=== PATIENT | female | born 1945 | race Caucasian/White ===

== ENCOUNTER 2018-10-08 10:33 | Inpatient (IN) | payer MEDICARE, OTHER ==
[2018-10-08 11:08] LABS: #Basophils 0.1 thou/uL (0.0-0.2); #Eosinphils 0.1 thou/uL (0.0-0.7); #Lymphocytes 2.3 thou/uL (1.20-3.40); #Neutrophils 9.8 thou/uL (1.40-6.50); %Basophils 0.6 % (0.0-1.0); %Eosinophils 0.8 % (0.0-10.0); %Lymphocytes 17.3 % (21.0-51.0); %Monocytes 7.4 % (0.0-10.0); Hemoglobin 13.1 g/dL (12.0-16.0); Mean Corpuscular Hemoglobin 30.3 pg (27.0-31.0); Mean Corpuscular Volume 94.6 fL (78.0-98.0); Mean Platelet Volume 6.8 fL (7.4-10.4); Platelet Count 348 thou/uL (130-400); RBC Distribution Width 13.1 % (11.5-14.5); Red Blood Cell (RBC) Count 4.33 mill/uL (4.20-5.40); White Blood Cell (WBC) Count 13.2 thou/uL (4.8-10.8)
[2018-10-08 11:36] LABS: ALT (SGPT) 22 U/L (8-55); AST (SGOT) 27 U/L (5-34); Albumin 3.3 g/dL (3.4-4.8); Alkaline Phosphatase 87 U/L (40-150); Anion Gap 15 mmol/L (10-20); BUN (Urea Nitrogen) 16 mg/dL (9.8-20.1); Bilirubin, Total 0.7 mg/dL (0.2-1.2); CK (CPK) 780 U/L (29-168); Calc. Creatinine Clearance 0 mL/min (70-130); Carbon Dioxide 24 mmol/L (23-31); Chloride 103 mmol/L (98-107); Estimated GFR-MDRD 75; Globulin 3.7 g/dL (2.4-3.5); Glucose 151 mg/dL (83-110); Potassium 3.7 mmol/L (3.5-5.1); Sodium 138 mmol/L (136-145)
[2018-10-08 11:39] LABS: Troponin I 0.084 ng/mL (< 0.028)
[2018-10-08 11:56] LABS: CKMB 25.3 ng/mL (0-6.6)
--- NOTE | 2018-10-08 12:35 | CT ---
CTA THORAX WITH IV CONTRAST AND 3D REFORMATTED IMAGING: INDICATIONS: Dyspnea. FINDINGS: There is extensive pulmonary thrombus seen within both distal main pulmonary arteries but more so on the right. There is near complete occlusion of the right interlobar artery with multiple filling def ects extending into the segmental branches of the right lower lobe, right middle lobe, and right uppe r lobe. There are substantial partially occlusive filling defects within the left lower lobe, lingul a, and left upper lobe. There are small bilateral pleural effusions, left greater than right, with b ibasilar atelectasis. There is some flattening of the intraventricular septum, which may be indicati ve of early right heart strain. No reflux of contrast is seen within the hepatic veins. There is an aortic valvular prosthesis. There is scattered vascular calcification of the coronary arteries and thoracic aorta. The visualized upper abdomen reveals no acute abnormality. There is scattered degen erative change. IMPRESSION: 1. Extensive pulmonary embolus, as above, with findings of early right heart strain. Findings verdugo d to Dr. Parikh at 12:20 p.m. on 10/08/2018. 2. Small bilateral pleural effusions and bibasilar atelectasis. CODE CR POS: [facility]
[2018-10-08] MEDS ORDERED: ISOVUE-370 76%-LOCM 1 ML ONE (13:59)
[2018-10-08] MEDS ORDERED: Loperamide HCl 2 MG CAP PO PRN (14:24)
[2018-10-08] MEDS ORDERED: HYDROcodone/Acetaminophen 5/325 mg Tablet PO PRN (14:24)
[2018-10-08] MEDS ORDERED: Acetaminophen 325 MG TAB PO PRN (14:24)
[2018-10-08] MEDS ORDERED: Cepastat Lozenges 1 LOZ PO PRN (14:24)
[2018-10-08] MEDS ORDERED: Ondansetron ODT 4 MG TAB PO PRN (14:24)
[2018-10-08] MEDS ORDERED: Diabetic Tussin 200 MG/10 ML UDCUP PO PRN (14:24)
[2018-10-08] MEDS ORDERED: Eucerin (Mineral Oil/Petrolatum,White) 30 gm Jar TOP PRN (14:24)
[2018-10-08] MEDS ORDERED: Labetalol HCl 100 MG/20 ML VIAL SLOW IVP PRN (14:24)
[2018-10-08] MEDS ORDERED: Bisacodyl 5 MG TAB PO PRN (14:24)
[2018-10-08] MEDS ORDERED: Sodium Chloride 0.65% Nasal 44 ML BOT EA NARE PRN (14:24)
[2018-10-08] MEDS ORDERED: Ondansetron PF 4 MG/2 ML Vial IVP PRN (14:24)
[2018-10-08] MEDS ORDERED: Calcium Carbonate 500 MG ChewTAB PO PRN (14:24)
[2018-10-08] MEDS ORDERED: Artificial Tears 18 DROP/0.9 ML EA EYE PRN (14:24)
[2018-10-08] MEDS ORDERED: Loratadine 10 MG TAB PO PRN (14:24)
[2018-10-08] MEDS ORDERED: Bisacodyl 10 MG SUPP PR PRN (14:24)
[2018-10-08] MEDS ORDERED: Senokot S 8.6-50 MG TAB PO PRN (14:24)
[2018-10-08 15:21] VITALS: BMI 32.8
[2018-10-08 15:22] LABS: Troponin I 0.096 ng/mL (< 0.028)
--- NOTE | 2018-10-08 15:29 | PDOC.PULCN ---
<Zev Stapleton - Last Filed: 10/08/18 18:58> Pulmonology Consult: HPI - Date of Consult Date: 10/08/18 Time: 15:20 - Consult Details Reason for Consult: bilateral pulmonary embolism s/p TPA Requesting Physician: Aleyda Avendaño - History of Present Illness HPI: CHAVA PELAEZ is a 73 year-old F with PMH of Dementia and Hypothyroidism. History obtained from ER documentation as patient is poor historian due to dementia and no family is present. Apparently, patient was short of breath at home and oxygen saturation was checked by family member and was 83%. When EMS arrived, they put patient on NC and her O2 sat was 83%. She was brought to ED. CTA of chest was performed and showed bilateral distal pulmonary artery embolism , greater on the right. After discussion with ERMRavin, Dr. Chatterjee, and family, decision was made to start TPA and patient was transitioned to the CCU. Sats were 93-94% on facemask in the ED. Pulmonology Consult: ROS - Review of Systems ROS unobtainable: due to mental status (ROS unreliable due to dementia but patient did deny following) Constitutional: negative: fever, chills, sweats, weakness Cardiovascular: negative: chest pain, palpitations, light headedness Respiratory: negative: congestion, cough, chest tightness, short of breath Pulmonology Consult: PMH Source: other (ED documentation as patient is unreliable historian) Past Medical History: 1) Dementia 2) Hypothyroidism - Social History Smoking Status: Unknown if ever smoked Alcohol Use: none, other (unknown) Drug Use History: other (unknown) Living Situation: with family/parents Pulmonology Consult: Meds - Medications MAR Reviewed: Yes Medications: Current Medications Acetaminophen (Tylenol) 650 mg PO Q4H PRN PRN Reason: Headache/Fever/Mild Pain (1-3) Hydrocodone Bitart/Acetaminophen ([place] 5/325) 1 tab PO Q4H PRN PRN Reason: Moderate Pain (4-6) Artificial Tears (Tears Naturale) 2 drop EA EYE PRN PRN PRN Reason: Dry Eyes Bisacodyl (Dulcolax) 10 mg PO DAILYPRN PRN PRN Reason: Constipation Bisacodyl (Dulcolax) 10 mg [place] DAILYPRN PRN PRN Reason: Constipation Calcium Carbonate (Tums) 1,000 mg PO Q4H PRN PRN Reason: Heartburn or Indigestion Famotidine (Pepcid) 20 mg PO BID HASMUKH Guaifenesin (Robitussin Sf) 200 mg PO Q4H PRN PRN Reason: Cough Labetalol HCl (Normodyne) 10 mg SLOW IVP Q4H PRN PRN Reason: SBP Greater Than 170 Loperamide HCl (Imodium) 2 mg PO PRN PRN PRN Reason: Diarrhea/Loose Stools Loratadine (Claritin) 10 mg PO DAILYPRN PRN PRN Reason: Sinus Symptoms Mineral Oil/White Petrolatum (Eucerin Cream) 0 gm TOP BIDPRN PRN PRN Reason: Dry Skin Ondansetron HCl (Zofran Odt) 4 mg PO Q6H PRN PRN Reason: Nausea/Vomiting Ondansetron HCl (Zofran) 4 mg IVP Q6H PRN PRN Reason: Nausea/Vomiting Senna/Docusate Sodium (Senokot S) 2 tab PO BID PRN PRN Reason: Constipation Sodium Chloride (Petroleum Nasal [place] 0.65%) 0 ml EA NARE QIDPRN PRN PRN Reason: Nasal Congestion Throat Lozenges (Cepastat Lozenges) 1 steve PO Q2H PRN PRN Reason: Sore Throat - Allergies Allergies/Adverse Reactions: Allergies Allergy/AdvReac Type Severity Reaction Status Date / Time Penicillins Allergy Verified 10/08/18 14:39 Pulmonology Consult: PE - Physical Exam Constitutional: NAD HEENT: moist MMs, sclera anicteric Neck: supple, full ROM Cardiovascular: no significant murmur, no rub Deviation from normal: tachycardic Respiratory: clear to auscultation bilaterally. negative: decreased breath sounds, rales, respiratory distress, wheezes Gastrointestinal: soft, non-tender Musculoskeletal: no edema, pulses present Neurological: non-focal, moves all 4 limbs Deviation from normal: A&O x 1 Skin: no rash, cap refill <2 seconds Pulmonology Consult: Results - Labs Result Diagrams: 10/08/18 10:58 10/08/18 10:58 - EKG Data Rate: tachycardia (Sinus Tachycardia with inverted T waves and Q waves in inferior leads) Pulmonology Consult: A/P - Problem (1) Bilateral pulmonary embolism Code(s): I26.99 - OTHER PULMONARY EMBOLISM WITHOUT ACUTE COR PULMONALE Status : Acute (2) Hypothyroidism Code(s): E03.9 - HYPOTHYROIDISM, UNSPECIFIED Status: Chronic (3) Dementia Code(s): F03.90 - UNSPECIFIED DEMENTIA WITHOUT BEHAVIORAL DISTURBANCE Status: Chronic - Time Time: 50% of the time was spent in coordination of care (as documented) at patient's floor/unit and/or counseling patient. Time with Patient: greater than 50 minutes - Plan Plan: Submassive pulmonary embolism s/p TPA administration. CTA of chest showed bilateral distal pulmonary artery embolism, great in right with evidence of right heart strain. Received TPA in ER. TPA completed at 1450. Patient is doing well from a respiratory standpoint. Currently, oxygen saturation is 94% on RA. Will initiate anticoagulation 4 hour hours after completion of TPA. Echo and lower extremity US pending. Will monitor patient overnight in the CCU and she will likely be able to transition to the floor in the morning. <Robson Chatterjee - Last Filed: 10/13/18 11:24> Pulmonology Consult: HPI - History of Present Illness HPI: CHAVA PELAEZ is a 73 year-old F Pulmonology Consult: Results - Labs Result Diagrams: 10/11/18 03:39 10/10/18 17:55 Pulmonology Consult: A/P - Time Time: 50% of the time was spent in coordination of care (as documented) at patient's floor/unit and/or counseling patient. Attending Addendum - Attending Addendum Date/Time: 10/08/18 1800 I personally evaluated the patient and discussed the management with the resident. I agree with the History, Examination, Assessment and Plan documented above with any addition or exceptions noted below. Acute hypoxic respiratory failure. Acute PE, submassive, s/p tPA. 70 minutes have been devoted to this patient in various activities. I personally reviewed all imaging studies and laboratory data noted within this document. For fifty percent of this time, I was interacting with the patient at the bedside or coordinating care with the care team. For the remainder of the time I was immediately available to the patient in the hospital unit.
--- NOTE | 2018-10-08 16:00 | ULT ---
ULTRASOUND WITH DOPPLER DUPLEX VENOUS LOWER EXTREMITY BILATERAL CPT: 80516 ICD-10-PCS: B54D HISTORY: History of pulmonary embolus. TECHNIQUE: Color flow Doppler, spectral waveform analysis of pulsed Doppler, and potter-scale imaging with marcelina jerel and augmentation, were used to evaluate the bilateral common femoral, femoral, popliteal, block bolter mule operator ior tibial, and superficial femoral, veins; and the proximal portions of the profunda femoral and gre ater saphenous, veins. FINDINGS: Appropriate compressibility and flow within the imaged deep vein system of the right lower extremity. There is abnormal increased echogenicity with diminished flow and compressibility involving venous st ructures of the left lower extremity including common femoral, femoral, popliteal, and posterior tibi al veins compatible with deep vein thrombosis. Given a mild component of flow is seen, findings aram glory nonocclusive thrombus. IMPRESSION: Extensive deep vein thrombosis involving the left lower extremity. The patient's nurse, Radha, was m brenda aware of the findings at the time of interpretation. CODE CR
[2018-10-08 17:23] LABS: Troponin I 0.084 ng/mL (< 0.028)
[2018-10-08] MEDS ORDERED: Prevnar 13-Val Conj/PF 0.5 ML SYRINGE IM ONE (17:45)
[2018-10-08] MEDS ORDERED: Famotidine 20 MG TAB PO SCH (21:00)
[2018-10-09 04:01] LABS: INR-International Normal Ratio 1.5; Prothrombin Time 18.4 SEC (12.0-14.7)
[2018-10-09 04:12] LABS: Hemoglobin 12.4 g/dL (12.0-16.0); Mean Corpuscular HGB CONC 32.9 g/dL (32.0-36.0); Mean Corpuscular Hemoglobin 30.3 pg (27.0-31.0); Mean Corpuscular Volume 92.1 fL (78.0-98.0); Mean Platelet Volume 8.1 fL (7.4-10.4); Platelet Count 289 thou/uL (130-400); RBC Distribution Width 13.3 % (11.5-14.5); Red Blood Cell (RBC) Count 4.09 mill/uL (4.20-5.40); White Blood Cell (WBC) Count 13.2 thou/uL (4.8-10.8)
[2018-10-09 04:13] LABS: Band 9 % (5-11); Eosinophils 3 % (0-10); Lymphocytes 19 % (21-51); MDiff Complete? YES; Monocytes 4 % (0-10); Neutrophil 65 % (42-75); PLT Morphology Comment Appears Adequate
[2018-10-09 04:19] LABS: ALT (SGPT) 22 U/L (8-55); AST (SGOT) 34 U/L (5-34); Albumin 2.8 g/dL (3.4-4.8); Alkaline Phosphatase 78 U/L (40-150); Anion Gap 11 mmol/L (10-20); BUN (Urea Nitrogen) 15 mg/dL (9.8-20.1); Bilirubin, Total 0.8 mg/dL (0.2-1.2); CK (CPK) 288 U/L (29-168); Calc. Creatinine Clearance 95 mL/min (70-130); Calcium 8.3 mg/dL (7.8-10.44); Carbon Dioxide 26 mmol/L (23-31); Cardiac Risk 5.7 (Less than 4.5); Chloride 103 mmol/L (98-107); Cholesterol 240 mg/dl (< 200 Desired); Estimated GFR-MDRD 84; Globulin 3.4 g/dL (2.4-3.5); Glucose 119 mg/dL (83-110); HDL Cholesterol 42 mg/dL (>60 Neg Risk); LDL Cholesterol, Calculated 177 mg/dL; Potassium 4.1 mmol/L (3.5-5.1); Protein, Total 6.2 g/dL (6.0-8.3); Sodium 136 mmol/L (136-145); Triglycerides 103 mg/dL (Less than 150)
--- NOTE | 2018-10-09 07:27 | HP ---
PRIMARY CARE PHYSICIAN: Dr. Dez Gale. REASON FOR ADMISSION: Acute respiratory failure with hypoxia, acute bilateral pulmonary embolism. HISTORY OF PRESENT ILLNESS: A 73-year-old female who has underlying history of pretty much advanced Alzheimer dementia who lives at home. She has assistant merchandise manager and other family member helping her out. For the last 10 days, patient is becoming gradually more and more weak. She is getting dyspnea with routine household activities. This patient mostly remains in bed. During entire night , she remains in bed without any ambulation and during daytime, she is able to move around the house 3-4 times with help only. She was noticed by her assistant merchandise manager that she is getting more out of breath and her oxygen saturation dropped last night. This morning, the patient was more short of breath and her oxygen saturation was 83% on room air and that is why family member called primary care physician and advised to call 911 and subsequently, she was brought to emergency room for evaluation. In the emergency room, patient was tachycardic. She was hypoxic. She was requiring nonrebreather to maintain her oxygen saturation. This patient is awake, but she has pretty much advanced dementia and that is why she is not able to provide any history, but family member present at bedside who provided most of the history. Patient had a CT angiography which showed bilateral extensive pulmonary embolism with right heart strain as well as small bilateral pleural effusion and bibasilar atelectasis. ER physician discussed with the ammonia box operator and subsequently decision was made to give her TPA, which she was getting when I saw this patient in the emergency room. The patient did not have any problem with bleeding, constipation, diarrhea. She did not have any fever, chills, or UTI symptoms. She did not have any cough , flu-like illness. She did not have any focal motor symptoms. 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 At that time, patient tolerated that medication without any problem. PAST MEDICAL HISTORY: Alzheimer's dementia, history of aortic valve disease required aortic valve replacement, hypothyroidism, physical deconditioning. PAST PSYCHIATRIC HISTORY: Anxiety and depression. PAST SURGICAL HISTORY: Aortic valve replacement with biological pig valve. SOCIAL HISTORY: Patient lives at home. She has a 24-hour caregiver. Family member helping around. She is not able to do all daily activities of routine life by herself. She has no history of tobacco, alcohol or illicit drug abuse. ROUTINE HEALTH MAINTENANCE: Patient's family members are not sure about routine health maintenance and routine health related screening for cancer. ALLERGIES: PENICILLIN. FAMILY HISTORY: No family history of CAD, CVA or cancer or blood clot disorder. CURRENT HOME MEDICATIONS: Synthroid one tablet daily, Celexa 20 mg daily. REVIEW OF SYSTEMS: All review of systems tried to review with the patient, but unable to review at this point because of patient's advanced dementia. EMERGENCY ROOM COURSE: Patient has received Activase. PHYSICAL EXAMINATION: VITAL SIGNS: Currently, blood pressure 137/86, pulse 118, respiratory rate 24, saturation 92% on nonrebreather, weight 87 kilograms, temperature 99.2. GENERAL: Patient is currently alert, awake on nonrebreather, appears mild respiratory distress, pain free and tachycardic. HEAD: Normocephalic, atraumatic. EYES: Pupils round, reactive to light. Extraocular muscles intact. ENT: Oropharynx within normal limits. Moist mucous membranes. No oral lesion , no pharyngeal erythema, no exudate. NECK: Supple, no JVD, no thyromegaly, no carotid bruit. LUNGS: Bibasilar air entry reduced. No wheezing, no rales. CARDIAC: S1, S2 regular, tachycardia, soft systolic murmur noted at base. No gallop, no rub. ABDOMEN: Soft, tympanic bowel sounds. No organomegaly, no mass, no suprapubic tenderness. BACK: Unremarkable, no CVA tenderness. EXTREMITIES: Upper extremity passive movement of all joints are normal. Lower extremity varicose vein noted. Slight edema noted. Good distal pulsation. SKIN: No skin rash. HEMATOLOGICAL: No lymphadenopathy. PSYCHIATRIC: Normal affect. NEUROLOGIC: Patient is moving all four limbs. No focal neurological deficit noted. SIGNIFICANT LABORATORY DATA: EKG showing sinus tachycardia, nonspecific ST-T changes. CT angiography showing extensive bilateral pulmonary embolism, right heart strain. CBC: WBC 13.2, hemoglobin 13.1, platelets 348. BMP: Sodium 138 , potassium 3.7, chloride 103, carbon dioxide 24, anion gap 15, BUN 16, creatinine 0.75, glucose 151, calcium 9.0. LFT: AST 27, ALT 22, alkaline phosphatase is 87, albumin 3.3. CK 780, CK-MB 25.3, troponin 0.084. BNP 1387. ASSESSMENT AND PLAN: 1. Acute hypoxic respiratory failure secondary to extensive bilateral pulmonary embolism. Patient is requiring oxygen. The patient is receiving TPA for pulmonary embolism. Post-T PA, patient will be admitted in CCU. Pulmonary group will be consulted. We will closely monitor for her oxygen requirement. 2. Rhabdomyolysis with elevated troponin. We will do serial cardiac enzymes x3 to rule out acute coronary syndrome. Patient will be monitored with lab rodrigues and on telemetry floor. As patient has elevated BNP that is why we will be very cautious with IV fluid to prevent fluid overload. 3. Extensive bilateral pulmonary embolism with right ventricular strain. We will obtain echocardiography ultrasound of bilateral lower extremities. Stool for guaiac. Patient will be given Lovenox 1 mg per kg versus newer oral anticoagulant therapy after 24 hours of TPA. We will avoid all antiplatelet or anticoagulant therapy after TPA for 24 hours. Patient will need age- appropriate cancer screening to rule out underlying cancer. 4. Elevated BNP. We will obtain echocardiography, suspecting from right-sided heart failure from extensive pulmonary embolism, but underlying systolic dysfunction cannot be entirely excluded. 5. Hypoalbuminemia related with mild to moderate protein calorie malnutrition. The patient will be given nutritional supplementation. 6. Hypothyroidism. We will check TSH and start Synthroid as per home dosage. 7. Anxiety and depression. Once we verify the patient's home medication, Celexa, which will continue while in hospital. 8. Physical deconditioning. Patient will need PT, OT evaluation and eventually placement to rehab/residential home upon discharge. 9. Deep venous thrombosis prophylaxis. Patient is already on full dose of Lovenox therapy. After ultrasound done in excluded DVT, then we will use mechanical prophylaxis. Code status discussed with the patient and family member at bedside in the emergency room and they wanted to try at least in case of cardiopulmonary arrest to do CPR or intubation momentarily, but patient does not want to be on machine forever. Disposition plan based on clinical course. We are expecting patient's stay in hospital more than 2 midnights. Plan of care discussed with the patient and family member at bedside in the emergency room. JUAN
[2018-10-09] MEDS: Citalopram 20 MG TAB PO SCH (09:13)
[2018-10-09] MEDS: Enoxaparin Sodium 80 MG/0.8 ML SYRINGE SC SCH ×2 (09:13→20:54)
[2018-10-09] MEDS: Sodium Chloride 0.45% 1,000 ML IV SCH ×2 (09:14→20:55)
--- NOTE | 2018-10-09 09:23 | PRG ---
DATE OF SERVICE: 10/09/2018 SERVICE: Pulmonary Medicine. INTERVAL HISTORY: The patient is really doing quite well from a respiratory standpoint. She has been weaned off oxygen and is currently on room air. She denies any chest pain, fevers, chills, nausea or vomiting. There have been no recent events overnight. She remains pleasantly demented. PHYSICAL EXAMINATION: VITAL SIGNS: Afebrile, pulse 119, blood pressure 119/79, respirations 19, saturation 98% on room air. GENERAL: The patient is awake and alert, in no apparent distress. LUNGS: Decent air entry. There is no prolonged expiratory phase, wheezing, rhonchi or crackles present. HEART: Normal rate and regular. ABDOMEN: Soft, nontender, nondistended. Bowel sounds are positive. MUSCULOSKELETAL: No cyanosis or clubbing. Skin tenting is present throughout. No pitting. NEUROLOGIC: Grossly nonfocal. LABORATORY DATA: WBC 13.2, hemoglobin 12.4, platelets 289,000. Band count 9%. INR 1.5. Basic metabolic profile and liver function studies are essentially unremarkable. Troponin is down trending to 0.084. BNP previously 1300. TSH 2.9. IMAGING DATA: Ultrasound of the bilateral lower extremities demonstrates evidence of extensive thrombi in the left lower extremity. ASSESSMENT: 1. Acute hypoxic respiratory failure, resolved. 2. Acute pulmonary embolism, submassive. 3. Non-ST elevation myocardial infarction secondary to pulmonary embolism. 4. Deep venous thrombosis of the left lower extremity, extensive. 5. Dementia, advanced. 6. Sinus tachycardia. DISCUSSION AND PLAN: Clinically, she is a touch dehydrated. As such, I will give her half normal saline at 75 mL an hour to supplement her p.o. for the next 24 hours. Pulmonary and Critical Care will continue following along for the time being. We can switch her over to a direct oral anticoagulant like Eliquis within 24 hours and consider her for discharge home on Friday or Friday assuming all goes well. I will repeat a BNP tomorrow morning to make certain that right ventricle has been off loaded. MTDD
--- NOTE | 2018-10-09 11:10 | PDOC.PN ---
- Subjective Encounter Start Date: 10/09/18 Encounter Start Time: 10:00 Patient seen and examined. No overnight events pt has tachycardia - Objective Resuscitation Status: Resuscitation Status FULL:Full Resuscitation MAR Reviewed: Yes Vital Signs & Weight: Vital Signs (12 hours) Temp Pulse Ox 10/09/18 08:00 97 10/09/18 07:00 98.9 F Weight Weight 185 lb 6.54 oz Most Recent Monitor Data Heart Rate from ECG 121 NIBP 103/76 NIBP BP-Mean 85 Respiration from ECG 23 SpO2 96 I&O: 10/08/18 10/09/18 10/10/18 06:59 06:59 06:59 Intake Total 310 458 Output Total 1 1 Balance 309 457 Result Diagrams: 10/09/18 03:38 10/09/18 03:38 Radiology Reviewed by me: Yes (US leg noted DVT) EKG Reviewed by me: Yes (sinus tachycardia) Phys Exam - Physical Examination Constitutional: NAD HEENT: PERRLA, moist MMs, sclera anicteric Neck: no JVD, supple Respiratory: no wheezing, no rales, no rhonchi Cardiovascular: RRR, no significant murmur, no rub tachycardia Gastrointestinal: soft, non-tender, no distention, positive bowel sounds Musculoskeletal: no edema, pulses present Neurological: non-focal, normal sensation Lymphatic: no nodes Psychiatric: normal affect Skin: no rash, normal turgor Dx/Plan (1) Acute respiratory failure with hypoxia Code(s): J96.01 - ACUTE RESPIRATORY FAILURE WITH HYPOXIA Status: Acute (2) Bilateral pulmonary embolism Code(s): I26.99 - OTHER PULMONARY EMBOLISM WITHOUT ACUTE COR PULMONALE Status : Acute Comment: s/p TPA and now on lovenox (3) Deep vein thrombosis (DVT) of left lower extremity Code(s): I82.402 - ACUTE EMBOLISM AND THOMBOS UNSP DEEP VEINS OF L LOW EXTREM Status: Acute Qualifiers: Chronicity: acute (4) Demand ischemia of myocardium Code(s): I24.8 - OTHER FORMS OF ACUTE ISCHEMIC HEART DISEASE Status: Acute (5) Rhabdomyolysis Code(s): M62.82 - RHABDOMYOLYSIS Status: Acute (6) Alzheimer's dementia Code(s): G30.9 - ALZHEIMER'S DISEASE, UNSPECIFIED; F02.80 - DEMENTIA IN OTH DISEASES CLASSD ELSWHR W/O BEHAVRL DISTURB Status: Chronic (7) Dyslipidemia Code(s): E78.5 - HYPERLIPIDEMIA, UNSPECIFIED Status: Chronic (8) Hypothyroidism Code(s): E03.9 - HYPOTHYROIDISM, UNSPECIFIED Status: Chronic (9) Obesity (BMI 30.0-34.9) Code(s): E66.9 - OBESITY, UNSPECIFIED Status: Chronic - Plan cont current plan of care, plan discussed w/ family * start IVF * continue lovenox * transferred to [facility] * discussed with life care planner * medication reviewed as below * symptomatic treatment * echo done result pending. * monitor labs Review of Systems - Review of Systems Other: not reliable due to her underlying advanced dementia - Medications/Allergies Allergies/Adverse Reactions: Allergies Allergy/AdvReac Type Severity Reaction Status Date / Time Penicillins Allergy Verified 10/08/18 14:39 Medications: Current Medications Acetaminophen (Tylenol) 650 mg PO Q4H PRN PRN Reason: Headache/Fever/Mild Pain (1-3) Hydrocodone Bitart/Acetaminophen ([place] 5/325) 1 tab PO Q4H PRN PRN Reason: Moderate Pain (4-6) Artificial Tears (Tears Naturale) 2 drop EA EYE PRN PRN PRN Reason: Dry Eyes Bisacodyl (Dulcolax) 10 mg PO DAILYPRN PRN PRN Reason: Constipation Bisacodyl (Dulcolax) 10 mg [place] DAILYPRN PRN PRN Reason: Constipation Calcium Carbonate (Tums) 1,000 mg PO Q4H PRN PRN Reason: Heartburn or Indigestion Citalopram Hydrobromide (Celexa) 20 mg PO DAILY [facility] Last Admin: 10/09/18 09:13 Dose: 20 mg Enoxaparin Sodium (Lovenox) 80 mg SC 0900,2100 [facility] Last Admin: 10/09/18 09:13 Dose: 80 mg Guaifenesin (Robitussin Sf) 200 mg PO Q4H PRN PRN Reason: Cough Sodium Chloride (1/2 Normal Saline) 1,000 mls @ 75 mls/hr IV .[id number] [facility] Stop: 10/10/18 11:39 Last Admin: 10/09/18 09:14 Dose: 1,000 mls Labetalol HCl (Normodyne) 10 mg SLOW IVP Q4H PRN PRN Reason: SBP Greater Than 170 Levothyroxine Sodium (Synthroid) 25 mcg PO 0600 HASMUKH Loperamide HCl (Imodium) 2 mg PO PRN PRN PRN Reason: Diarrhea/Loose Stools Loratadine (Claritin) 10 mg PO DAILYPRN PRN PRN Reason: Sinus Symptoms Mineral Oil/White Petrolatum (Eucerin Cream) 0 gm TOP BIDPRN PRN PRN Reason: Dry Skin Ondansetron HCl (Zofran Odt) 4 mg PO Q6H PRN PRN Reason: Nausea/Vomiting Ondansetron HCl (Zofran) 4 mg IVP Q6H PRN PRN Reason: Nausea/Vomiting Senna/Docusate Sodium (Senokot S) 2 tab PO BID PRN PRN Reason: Constipation Sodium Chloride ([place] Nasal [place] 0.65%) 0 ml EA NARE QIDPRN PRN PRN Reason: Nasal Congestion Throat Lozenges (Cepastat Lozenges) 1 steve PO Q2H PRN PRN Reason: Sore Throat
--- NOTE | 2018-10-09 12:06 | PQF ---
HCAVA PELAEZ, TEODORA DIANE MD [id number] [facility] [id number] CLINICAL DOCUMENTATION IMPROVEMENT CLARIFICATION FORM: ICD-10 Updated PLEASE DO AN ADDENDUM TO THE PROGRESS NOTE WITH ANY DOCUMENTATION UPDATES OR ADDITIONS AND CARRY THROUGH TO DC SUMMARY. THANK YOU. DATE: 10-09-18 ATTN: DR. FOUNTAIN Please exercise your independent, professional judgment in responding to the clarification form. Clinical indicators are provided on the bottom of this form for your review Please check appropriate box(s): [ ] NSTEMI [ ] AMI Type II due to Bilateral Pulmonary Embolism [ x ] Demand Ischemia due to Bilateral Pulmonary Embolism [ ] Other diagnosis [ ] Unable to determine CLINICAL INDICATORS - SIGNS / SYMPTOMS / LABS LABS: TROPONIN I CKMB 10-08 @ 1058 0.084 25.3 10-08 @ 1445 0.096 10-08 @ 1647 0.084 10-08 H&P (ESSIE) : EKG: SINUS TACHYCARDIA, NONSPECIFIC ST-T CHANGES RHABDOMYOLYSIS W/ ELEVATED TROPONIN. 10-09 (ANA): NSTEMI SECONDARY TO PULMONARY EMBOLISM 10-09 (ESSIE): DEMAND ISCHEMIA RISKS: 10-08 H&P ([facility]) : PT MOSTLY REMAINS IN BED - ABLE TO MOVE AROUND THE HOUSE 3-4 TIMES W/ HELP ONLY ACUTE HYPOXIC RESPIRATORY FAILURE D/T BILATERAL PULMONARY EMBOLISM RHABDOMYOLYSIS W/ ELEVATED TROPONIN RIGHT-SIDED HEART FAILURE FROM EXTENSIVE PULOMNARY EMBOLISM TREATMENTS: ED: TPA FOR PULMONARY EMBOLISM CPOE: CONTINUOUS HEART MONITORING - CCU OXYGEN - FACEMASK THANK YOU, ANALI (This form is maintained as a part of the permanent medical record) 2014 [employer] All Rights Reserved Anali Jean, RN, BS [email or web address]
[2018-10-09] MEDS: Atorvastatin Calcium 10 MG TAB PO SCH (20:54)
[2018-10-10] MEDS: Levothyroxine Sodium 25 MCG TAB PO SCH (05:30)
[2018-10-10 05:52] LABS: Hemoglobin 12.1 g/dL (12.0-16.0); Platelet Count 373 thou/uL (130-400)
[2018-10-10 06:08] LABS: Calc. Creatinine Clearance 111 mL/min (70-130); Estimated GFR-MDRD Greater than 90
[2018-10-10 06:20] LABS: INR-International Normal Ratio 1.2; Prothrombin Time 15.4 SEC (12.0-14.7)
[2018-10-10] MEDS: Citalopram 20 MG TAB PO SCH (08:42)
[2018-10-10] MEDS: Enoxaparin Sodium 80 MG/0.8 ML SYRINGE SC SCH (08:42)
--- NOTE | 2018-10-10 10:51 | PDOC.PN ---
- Subjective Encounter Start Date: 10/10/18 Encounter Start Time: 10:47 Ms. Broosk was seen today in follow-up of PE. She denies having any difficulty breathing, and denies chest pain. - Objective Resuscitation Status: Resuscitation Status FULL:Full Resuscitation MAR Reviewed: Yes Vital Signs & Weight: Vital Signs (12 hours) Temp Pulse Resp BP Pulse Ox 10/10/18 07:15 97.9 F 88 16 109/67 92 L 10/10/18 04:00 98.2 F 99 18 112/65 93 L 10/10/18 03:51 92 L 10/10/18 00:00 98.6 F 101 H 16 134/81 92 L Weight Weight 185 lb 6.54 oz Most Recent Monitor Data Heart Rate from ECG 121 NIBP 103/76 NIBP BP-Mean 85 Respiration from ECG 23 SpO2 96 I&O: 10/09/18 10/10/18 10/11/18 06:59 06:59 06:59 Intake Total 310 1176 Output Total 1 1 Balance 309 1175 Result Diagrams: 10/10/18 05:32 10/10/18 05:31 Phys Exam - Physical Examination HEENT: PERRLA Respiratory: no wheezing, no rales, no rhonchi, clear to auscultation bilateral Cardiovascular: RRR, no significant murmur, no rub Gastrointestinal: soft, non-tender, no distention, positive bowel sounds Musculoskeletal: edema present non-pitting edema Neurological: non-focal, moves all 4 limbs Psychiatric: normal affect, A&O x 3 Dx/Plan (1) Bilateral pulmonary embolism Code(s): I26.99 - OTHER PULMONARY EMBOLISM WITHOUT ACUTE COR PULMONALE Status : Acute Comment: s/p TPA and now on lovenox (2) Acute respiratory failure with hypoxia Code(s): J96.01 - ACUTE RESPIRATORY FAILURE WITH HYPOXIA Status: Acute (3) Physical deconditioning Code(s): R53.81 - OTHER MALAISE Status: Acute (4) Deep vein thrombosis (DVT) of left lower extremity Code(s): I82.402 - ACUTE EMBOLISM AND THOMBOS UNSP DEEP VEINS OF L LOW EXTREM Status: Acute Qualifiers: Chronicity: acute (5) Alzheimer's dementia Code(s): G30.9 - ALZHEIMER'S DISEASE, UNSPECIFIED; F02.80 - DEMENTIA IN OTH DISEASES CLASSD ELSWHR W/O BEHAVRL DISTURB Status: Chronic (6) Hypothyroidism Code(s): E03.9 - HYPOTHYROIDISM, UNSPECIFIED Status: Chronic - Plan * Acute Pulmonary Embolus, with Acute respiratory failure due to this. She is clinically improving. Will change her to oral Xarelto. Echo results were noted. She is oxygenating well on room air * General Debility- her daughter is very concerned about her ability to ambulate ( or lack of ability)- she can resume PT, she may require penitentiary depending on her progress * Left DVT- - Xarelto * Hypothyroidism- stable * Alzeimer's dementia- stable.
--- NOTE | 2018-10-10 14:09 | PRG ---
DATE OF SERVICE: 10/10/2018 SUBJECTIVE: This morning, she is better. She says she is less short of breath, less cough. OBJECTIVE: VITAL SIGNS: Sats are 93 on room air, respirations 18, temperature 98.7, blood pressure 109/59. CHEST: Decreased breath sounds, no wheezing. CARDIAC: Normal S1, S2. No gallops. ABDOMEN: No masses. IMPRESSION: 1. Status post . Echocardiogram shows diastolic dysfunction. 2. Obesity. PLAN: Xarelto 15 twice a day. PT and supportive care.
[2018-10-10 18:06] LABS: Hemoglobin 12.7 g/dL (12.0-16.0); Platelet Count 393 thou/uL (130-400)
[2018-10-10] MEDS: Rivaroxaban 15 MG TAB PO SCH (20:26)
[2018-10-10] MEDS: Atorvastatin Calcium 10 MG TAB PO SCH (20:27)
[2018-10-11 04:30] LABS: Hemoglobin 11.7 g/dL (12.0-16.0)
[2018-10-11 04:32] LABS: Platelet Count 414 thou/uL (130-400)
[2018-10-11] MEDS: Levothyroxine Sodium 25 MCG TAB PO SCH (05:38)
[2018-10-11] MEDS ORDERED: Sodium Chloride 0.9% 10 ML ONE (08:55)
[2018-10-11] MEDS: Citalopram 20 MG TAB PO SCH (09:43)
[2018-10-11] MEDS: Rivaroxaban 15 MG TAB PO SCH (09:43)
--- NOTE | 2018-10-11 15:16 | PDOC.PN ---
- Subjective Encounter Start Date: 10/11/18 Encounter Start Time: 10:25 Mr. Brooks was seen today in follow-up. She does not have any complaints this morning. She denies feeling short of breath, and denies chest pain. - Objective Resuscitation Status: Resuscitation Status FULL:Full Resuscitation MAR Reviewed: Yes Vital Signs & Weight: Vital Signs (12 hours) Temp Pulse Resp BP Pulse Ox 10/11/18 12:42 98 F 85 16 114/62 95 10/11/18 07:58 98 F 88 18 118/70 95 10/11/18 04:00 99.2 F 92 18 122/63 96 Weight Weight 185 lb 6.54 oz Most Recent Monitor Data Heart Rate from ECG 121 NIBP 103/76 NIBP BP-Mean 85 Respiration from ECG 23 SpO2 96 I&O: 10/10/18 10/11/18 10/12/18 06:59 06:59 06:59 Intake Total 1176 1000 Output Total 1 Balance 1175 1000 Result Diagrams: 10/11/18 03:39 10/10/18 17:55 Phys Exam - Physical Examination HEENT: PERRLA Respiratory: no wheezing, no rales, no rhonchi, clear to auscultation bilateral Cardiovascular: RRR, no significant murmur, no rub Gastrointestinal: soft, non-tender, no distention, positive bowel sounds Musculoskeletal: pulses present, edema present + non-pitting edema bilaterally Neurological: non-focal, normal sensation, moves all 4 limbs Dx/Plan (1) Bilateral pulmonary embolism Code(s): I26.99 - OTHER PULMONARY EMBOLISM WITHOUT ACUTE COR PULMONALE Status : Acute Comment: s/p TPA and now on lovenox (2) Acute respiratory failure with hypoxia Code(s): J96.01 - ACUTE RESPIRATORY FAILURE WITH HYPOXIA Status: Acute (3) Physical deconditioning Code(s): R53.81 - OTHER MALAISE Status: Acute (4) Deep vein thrombosis (DVT) of left lower extremity Code(s): I82.402 - ACUTE EMBOLISM AND THOMBOS UNSP DEEP VEINS OF L LOW EXTREM Status: Acute Qualifiers: Chronicity: acute (5) Alzheimer's dementia Code(s): G30.9 - ALZHEIMER'S DISEASE, UNSPECIFIED; F02.80 - DEMENTIA IN OTH DISEASES CLASSD ELSWHR W/O BEHAVRL DISTURB Status: Chronic (6) Hypothyroidism Code(s): E03.9 - HYPOTHYROIDISM, UNSPECIFIED Status: Chronic - Plan * Acute Bilateral PE, and left Leg DVT- she is clinically improving, and has been transitioned to Xarelto * She is stable for transfer to Rehab * .
[2018-10-11 17:09] VITALS: BP 118/67; TEMP 98.1
--- NOTE | 2018-10-11 17:59 | PRG ---
DATE OF SERVICE: 10/11/2018 SUBJECTIVE: She is doing well. She is just severely deconditioned, not ambulating much. OBJECTIVE: VITAL SIGNS: Temperature 98, pulse 88, respirations 18, sat 95%, blood pressure 118/70. CHEST: Decreased breath sounds, no wheezing. CARDIAC: Normal S1, S2. No gallops. ABDOMEN: Soft, no masses. IMPRESSION: Pulmonary embolism, advanced age, deconditioning. PLAN: We will have placement if possible. We will follow. Continue Rejito.
--- NOTE | 2018-10-11 22:16 | DIS ---
DATE OF ADMISSION: 10/08/2018 DATE OF DISCHARGE: 10/11/2018 PRIMARY CARE PHYSICIAN: Dez Gale M.D. DISCHARGE DISPOSITION: To inpatient rehabilitation. DISCHARGE DIAGNOSES: 1. Acute pulmonary embolism. 2. Left lower extremity deep venous thrombosis. 3. Alzheimer dementia. 4. History of aortic valve replacement. 5. Hypothyroidism. 6. Physical deconditioning. DISCHARGE MEDICATIONS: Include Xarelto 15 mg 1 p.o. twice a day for 3 weeks and then change to 20 mg daily, Lipitor 10 mg at bedtime, levothyroxine 50 mcg daily, and citalopram 20 mg daily. PROCEDURES DONE DURING ADMISSION: The patient had a CT angiogram of the chest, which showed extensiv e pulmonary embolism with some findings of early right heart strain. The patient had a lower extremi ty venous Doppler showing extensive deep vein thrombosis involving the left lower extremity. The pat ient had an echocardiogram showing E to A flow reversal suggestive of diastolic dysfunction. CODE STATUS: FULL CODE. ALLERGIES: PENICILLIN. HOSPITAL COURSE: Ms. Brooks is a 73-year-old female that presented to the emergency room due to prog ressive weakness, shortness of breath, and hypoxemia. She was evaluated in the ER and found to have an extensive pulmonary embolism as well as DVT in the left lower extremity. She was started on Loven ox for anticoagulation. An echocardiogram was performed to rule out significant right heart strain. This was negative. With several days of Lovenox, the patient's hypoxia improved to where she was ab le to be transitioned off of supplemental oxygen, and at the time of discharge, her O2 saturations we re 95% on room air, and her symptoms have essentially resolved. After several days of bed rest, she was able to get up and ambulate some without any difficulty. The patient's daughter was concerned ab out her immobility and concern for deconditioning, and for this reason, [facility] The [facility] was accepted and able to be transferred to the rehabilitation [facility] on 10/11/2018.
== END 2018-10-11 18:44 | DRG 175 ==
LOC: ERS 10:33 → CCU 12:56 → 2NO 10-09 10:34
PROVIDERS: ADMIT Internal Medicine; ATTEND Internal Medicine
DX: I26.99 Other pulmonary embolism without acute cor pulmonale (principal); J96.01 Acute respiratory failure with hypoxia; J90 Pleural effusion, not elsewhere classified; J98.11 Atelectasis; M62.82 Rhabdomyolysis; E44.0 Moderate protein-calorie malnutrition; I82.402 Acute embolism and thrombosis of unspecified deep veins of left lower extremity; I24.8 Other forms of acute ischemic heart disease; G30.9 Alzheimer's disease, unspecified; F02.80 Dementia in other diseases classified elsewhere, unspecified severity, without behavioral disturbance, psychotic disturbance, mood disturbance, and anxiety; Z79.01 Long term (current) use of anticoagulants; Z95.2 Presence of prosthetic heart valve; E03.9 Hypothyroidism, unspecified; F41.9 Anxiety disorder, unspecified; F32.9 Major depressive disorder, single episode, unspecified; Z88.0 Allergy status to penicillin; E88.09 Other disorders of plasma-protein metabolism, not elsewhere classified; Z68.32 Body mass index [BMI] 32.0-32.9, adult; R00.0 Tachycardia, unspecified; E86.0 Dehydration; E78.5 Hyperlipidemia, unspecified; E66.9 Obesity, unspecified; Z68.30 Body mass index [BMI] 30.0-30.9, adult
CPT/HCPCS: 36415; 71275; 80053; 80061; 82274; 82550; 82553; 82565; 83880; 84443; 84484; 85007; 85014; 85018; 85025; 85027; 85049; 85610; 93005; 93306; 93970; 96365; 96376; G8978-GP-CK; G8979-GP-CI; G8996-GN-CJ; G8997-GN-CJ; J1650; J2997

== ENCOUNTER 2019-05-09 17:59 | Emergency (ER) | payer MEDICARE, OTHER ==
[2019-05-09 18:38] LABS: #Basophils 0.1 thou/uL (0.0-0.2); #Eosinphils 0.1 thou/uL (0.0-0.7); #Lymphocytes 2.6 thou/uL (1.20-3.40); #Monocytes 0.4 thou/uL (0.11-0.59); #Neutrophils 4.7 thou/uL (1.40-6.50); %Basophils 0.9 % (0.0-1.0); %Eosinophils 1.1 % (0.0-10.0); %Lymphocytes 33.6 % (21.0-51.0); %Monocytes 5.1 % (0.0-10.0); %Neutrophils 59.3 % (42.0-75.0); Hemoglobin 13.7 g/dL (12.0-16.0); Mean Corpuscular HGB CONC 32.3 g/dL (32.0-36.0); Mean Corpuscular Volume 95.9 fL (78.0-98.0); Mean Platelet Volume 7.3 fL (7.4-10.4); Platelet Count 244 thou/uL (130-400); RBC Distribution Width 12.5 % (11.5-14.5); Red Blood Cell (RBC) Count 4.42 mill/uL (4.20-5.40); White Blood Cell (WBC) Count 7.9 thou/uL (4.8-10.8)
--- NOTE | 2019-05-09 18:49 | CT ---
CT HEAD WITHOUT CONTRAST: HISTORY: Syncope. TECHNIQUE: Multiple axial tomograms obtained through the head without IV enhancement. FINDINGS: Mild cortical atrophy. Mild chronic ischemic white matter change. Ventricle size is upper normal. No evidence of acute mass or hemorrhage. No evidence of acute infarct. The sinuses are clear. IMPRESSION: No acute finding. POS: [facility]
[2019-05-09 18:58] LABS: ALT (SGPT) 25 U/L (8-55); AST (SGOT) 27 U/L (5-34); Alkaline Phosphatase 78 U/L (40-150); Anion Gap 13 mmol/L (10-20); BUN (Urea Nitrogen) 18 mg/dL (9.8-20.1); Bilirubin, Total 0.4 mg/dL (0.2-1.2); CK (CPK) 37 U/L (29-168); Calc. Creatinine Clearance 0 mL/min (70-130); Carbon Dioxide 25 mmol/L (23-31); Chloride 105 mmol/L (98-107); Estimated GFR-MDRD 68; Globulin 3.3 g/dL (2.4-3.5); Glucose 113 mg/dL (83-110); Potassium 4.2 mmol/L (3.5-5.1); Protein, Total 7.3 g/dL (6.0-8.3); Sodium 139 mmol/L (136-145)
[2019-05-09 19:15] LABS: Bilirubin Negative (Negative); Blood, Urine Negative (Negative); Clarity CLOUDY (Clear); Glucose, Urine (Dipstick) Negative (Negative); Leukocyte Negative (Negative); Nitrite Negative (Negative); Protein, Urine (Dipstick) Trace mg/dL (Neg-Trace); Specific Gravity, Urine 1.027 (1.002-1.036); Urobilinogen 0.2 mg/dL (0.2-1.0); pH, Urine 6.5 (5.0-9.0)
--- NOTE | 2019-05-15 11:54 | EKG ---
Test Reason : Blood Pressure : / mmHG Vent. Rate : 067 BPM Atrial Rate : 067 BPM P-R Int : 174 ms QRS Dur : 084 ms QT Int : 402 ms P-R-T Axes : 059 021 029 degrees QTc Int : 424 ms Normal sinus rhythm Normal ECG Confirmed by KARLI ASHLEY, SHANE Chua ([id number]), technical editor JAIR LOMAX ([id number]) on 05/15/2019 11:53:59 AM Referred By: Confirmed By:SHANE CALVILLO MD
== END 2019-05-09 23:40 ==
LOC: ERS 17:59
DX: R55 Syncope and collapse (principal); E03.9 Hypothyroidism, unspecified; F03.90 Unspecified dementia, unspecified severity, without behavioral disturbance, psychotic disturbance, mood disturbance, and anxiety; Z79.899 Other long term (current) drug therapy
CPT/HCPCS: 36415; 70450; 80053; 81003; 82550; 84484; 85025; 93005; A4353